=== PATIENT | female | born 1940 | race Caucasian/White ===

== ENCOUNTER 2017-10-18 09:22 | Day surgery (SDC) | payer MEDICARE, BC ==
[2017-10-18] MEDS ORDERED: DIAZEPAM 5 MG TAB ONE (09:32)
[2017-10-18 09:46] VITALS: RESP 16
[2017-10-18] MEDS ORDERED: BUPIVACAINE HCL 0.25% MPF 30 ML SOL INFIL ONE (09:59)
[2017-10-18] MEDS ORDERED: DEXAMETHASONE SOD PHOS PF 10 MG/ML SOL IJ ONE (09:59)
[2017-10-18 10:39] VITALS: BP 123/60; PULSE 62; TEMP 98.2; O2SAT 97
== END 2017-10-18 10:50 | disposition home or self-care (01) | DRG 552 ==
LOC: SURG 09:22
PROVIDERS: ATTEND Nurse Anesthetist, Certified Registered
DX: M51.17 Intervertebral disc disorders with radiculopathy, lumbosacral region (principal)
CPT/HCPCS: A9270-GY; J1100

== ENCOUNTER 2017-11-12 08:02 | Day surgery (SDC) | payer MEDICARE, BC ==
[2017-11-12] MEDS ORDERED: DIAZEPAM 5 MG TAB ONE (08:32)
[2017-11-12] MEDS ORDERED: BUPIVACAINE HCL 0.25% MPF 30 ML SOL INFIL ONE (09:00)
[2017-11-12] MEDS: DEXAMETHASONE SOD PHOS PF 10 MG/ML SOL IJ ONE ×2 (09:08→09:22)
[2017-11-12] MEDS ORDERED: FENTANYL 100MCG/2ML SOL ONE (09:15)
[2017-11-12] MEDS ORDERED: SODIUM CHLORIDE 0.9% FLUSH 10 ML SOL IV ONE (09:16)
[2017-11-12 09:27] VITALS: RESP 16; TEMP 97.6
[2017-11-12 09:36] VITALS: BP 183/101; PULSE 77; O2SAT 96
[2017-11-12] MEDS ORDERED: ONDANSETRON HCL 4 MG/2 ML SOL ONE (09:46)
[2017-11-12] MEDS ORDERED: ONDANSETRON HCL 4 MG/2 ML SOL IV ONE (09:51)
== END 2017-11-12 10:19 | disposition home or self-care (01) | DRG 552 ==
LOC: SURG 08:02
PROVIDERS: ATTEND Nurse Anesthetist, Certified Registered
DX: M51.17 Intervertebral disc disorders with radiculopathy, lumbosacral region (principal)
CPT/HCPCS: J2405; J3010; A9270-GY; J1100